=== PATIENT | female | born 1995 | race Caucasian/White ===

== ENCOUNTER 2021-07-12 19:16 | Inpatient (IN) ==
--- NOTE | 2021-07-12 19:47 | Emergency Department Note ---
Impression & Plan Depression with suicidal ideation ADMISSION ED Provider Note HPI: The patient is a 26-year-old female with history of depression, presents the emergency department after reported suicide attempt. Patient states that she was feeling very anxious and depressed earlier this evening, states that she had a "bad evening". She states that they were attempting to go to the homecoming parade but it was too crowded, she became very anxious and upset, she states that she went home and had "a panic attack". She states that during this she reached for a bottle of fluoxetine and her stopped her from taking it but she did intend to take the entire bottle to kill herself. On arrival the patient is calm and cooperative, she is otherwise in no acute distress. ROS: -Psychiatric: Suicidal thoughts/suicide attempt, depression *10 point review systems was conducted and is otherwise negative unless stated above *Outpatient medications and allergy history reviewed PE: General: Alert, NAD HEENT: Normocephalic, atraumatic, trachea midline Eyes: Extraocular eye movement is intact, no scleral erythema Pulmonary: Clear to auscultation bilaterally, no wheezing Cardio: Regular rate and rhythm GI: Abdomen is soft, nontender : No suprapubic tenderness MSK: No evidence of trauma or malformation of the extremities, no edema Skin: No evidence of rash Neuro: Alert, no focal deficits Psychiatric: Cooperative Medical Decision Making: Patient was assessed by the psychiatric case preparer and liner, determined appropriate for voluntary admission given her suicide attempt earlier today. She remained calm and cooperative otherwise while in the ED. She is medically cleared/optimized for psychiatric evaluation. Patient was accepted at [facility] [address] for further psychiatr ic care. She was admitted in stable condition. * Diagnosis: Depression, suicidal thoughts, suicide attempt * Disposition: Admission to psychiatry Roger Shen DO Emergency Medicine Past Med/Surg History Social History Smoking Status: Never smoker Hx Alcohol Use: No Hx Substance Use: No Preferred Language: Czech Feels Safe at Home: Yes Results & Data (ED) Vital Signs Vital Signs - 24 hr 07/12/21 19:20 07/12/21 19:40 Temperature 36.8 C Temperature Source Temporal Artery Scan Pulse Rate 106 H Respiratory Rate 20 Blood Pressure 142/88 H Blood Pressure Mean 106 Blood Pressure Position Sitting Pulse Oximetry 99 Oxygen Delivery Method Room Air Room Air Sepsis Recent Fever Within 48 Hours No Sepsis New/Unexplained Change in Mental Status No Sepsis Action Taken by Nursing No Action Required Laboratory Data Result diagrams: 07/12/21 20:19 07/12/21 20:19 Lab Results 07/12/21 07/12/21 07/12/21 Range/Units 19:36 19:36 20:12 WBC (4.8-10.8) K/uL RBC (4.2-5.4) M/uL Hgb (12.0-16.0) g/dL Hct (37-47) % MCV (80-100) fL MCH (25-34) pg MCHC (32-36) g/dL RDW Std Deviation (36.4-46.3) fL RDW Coeff of Bradley (11.5-14.5) % Plt Count (130-400) K/uL MPV (7.4-10.4) fL Immature Gran % (Auto) % Neut % (Auto) % Lymph % (Auto) % [place] % (Auto) % Eos % (Auto) % Baso % (Auto) % Neut # (Auto) (1.4-6.5) K/uL Lymph # (Auto) (1.2-3.4) K/uL [place] # (Auto) (0.11-0.59) K/uL Eos # (Auto) (0-0.5) K/uL Baso # (Auto) (0-0.2) K/uL Immature Gran # (Auto) (0.00-0.02) K/uL Sodium (136-145) mmol/L Potassium (3.5-5.1) mmol/L Chloride (98-107) mmol/L Carbon Dioxide (21-32) mmol/L Anion Gap (3-11) BUN (7-18) mg/dl Creatinine (0.6-1.2) mg/dl Est Cr Clr Drug Dosing ml/min Est GFR ( Amer) ml/min Est GFR (Non-Af Amer) ml/min BUN/Creatinine Ratio (10-20) Glucose (70-99) mg/dl Calcium (8.5-10.1) mg/dl Total Bilirubin (0.2-1) mg/dl AST (15-37) U/L ALT (12-78) U/L Alkaline Phosphatase (45-117) U/L Total Protein (6.4-8.2) gm/dl Albumin (3.4-5.0) gm/dl Globulin (2.5-4.0) gm/dl Albumin/Globulin Ratio (0.9-2) TSH (0.300-4.500) uIu/ml Free T4 (0.8-1.6) ng/dl Urine Color Yellow Urine Appearance Cloudy A (Clear) Urine pH 5.0 (4.5-7.5) Ur Specific [place] 1.030 (1.000-1.030) Urine Protein Negative (Negative) Urine Glucose (UA) Negative (Negative) Urine Ketones Trace H (Negative) Urine Blood Negative (Negative) Urine Nitrite Negative (Negative) Urine Bilirubin Negative (Negative) Urine Urobilinogen Negative (Negative) Ur Leukocyte Esterase Trace H (Negative) Urine WBC (Auto) 10-30 H (0-5) /hpf Urine RBC (Auto) 0-4 (0-4) /hpf U Hyaline Cast (Auto) 1-5 (0-5) /lpf U Epithel Cells (Auto) >30 H (0-5) /lpf Urine Bacteria (Auto) 2+ H (Negative) Salicylates (2.8-20) mg/dl Urine Opiates Screen Neg (Neg) Ur Methadone, Qual Neg (Neg) Acetaminophen (10-30) ug/ml Urine Barbiturates Neg (Neg) Ur Phencyclidine (PCP) Neg (Neg) U Amphetamin/Meth Scrn Neg (Neg) MDMA (Ecstasy) Screen Neg (Neg) U Benzodiazepines Scrn Neg (Neg) Ur Cocaine Metabolite Neg (Neg) U Marijuana (THC) Screen Neg (Neg) Ethyl Alcohol mg/dL (0-3) mg/dl COVID-19 Eval Order Covid19 at [facility] SARS-CoV-2 (PCR) (Negative) 07/12/21 07/12/21 07/12/21 Range/Units 20:12 20:19 20:19 WBC 9.79 (4.8-10.8) K/uL RBC 4.63 (4.2-5.4) M/uL Hgb 13.9 (12.0-16.0) g/dL Hct 40.5 (37-47) % MCV 87.5 (80-100) fL MCH 30.0 (25-34) pg MCHC 34.3 (32-36) g/dL RDW Std Deviation 38.8 (36.4-46.3) fL RDW Coeff of Bradley 12.2 (11.5-14.5) % Plt Count 302 (130-400) K/uL MPV 9.8 (7.4-10.4) fL Immature Gran % (Auto) 0.1 % Neut % (Auto) 65.6 % Lymph % (Auto) 28.4 % [place] % (Auto) 4.9 % Eos % (Auto) 0.8 % Baso % (Auto) 0.2 % Neut # (Auto) 6.42 (1.4-6.5) K/uL Lymph # (Auto) 2.78 (1.2-3.4) K/uL [place] # (Auto) 0.48 (0.11-0.59) K/uL Eos # (Auto) 0.08 (0-0.5) K/uL Baso # (Auto) 0.02 (0-0.2) K/uL Immature Gran # (Auto) 0.01 (0.00-0.02) K/uL Sodium 139 (136-145) mmol/L Potassium 3.9 (3.5-5.1) mmol/L Chloride 108 H (98-107) mmol/L Carbon Dioxide 24 (21-32) mmol/L Anion Gap 8.0 (3-11) BUN 16 (7-18) mg/dl Creatinine 0.75 (0.6-1.2) mg/dl Est Cr Clr Drug Dosing 123.2 ml/min Est GFR ( Amer) 129.3 ml/min Est GFR (Non-Af Amer) 111.6 ml/min BUN/Creatinine Ratio 20.9 H (10-20) Glucose 87 (70-99) mg/dl Calcium 9.2 (8.5-10.1) mg/dl Total Bilirubin 0.4 (0.2-1) mg/dl AST 9 L (15-37) U/L ALT 16 (12-78) U/L Alkaline Phosphatase 59 (45-117) U/L Total Protein 7.7 (6.4-8.2) gm/dl Albumin 3.7 (3.4-5.0) gm/dl Globulin 4.0 (2.5-4.0) gm/dl Albumin/Globulin Ratio 0.9 (0.9-2) TSH 5.820 H (0.300-4.500) uIu/ml Free T4 0.75 L (0.8-1.6) ng/dl Urine Color Urine Appearance (Clear) Urine pH (4.5-7.5) Ur Specific [place] (1.000-1.030) Urine Protein (Negative) Urine Glucose (UA) (Negative) Urine Ketones (Negative) Urine Blood (Negative) Urine Nitrite (Negative) Urine Bilirubin (Negative) Urine Urobilinogen (Negative) Ur Leukocyte Esterase (Negative) Urine WBC (Auto) (0-5) /hpf Urine RBC (Auto) (0-4) /hpf U Hyaline Cast (Auto) (0-5) /lpf U Epithel Cells (Auto) (0-5) /lpf Urine Bacteria (Auto) (Negative) Salicylates (2.8-20) mg/dl Urine Opiates Screen (Neg) Ur Methadone, Qual (Neg) Acetaminophen (10-30) ug/ml Urine Barbiturates (Neg) Ur Phencyclidine (PCP) (Neg) U Amphetamin/Meth Scrn (Neg) MDMA (Ecstasy) Screen (Neg) U Benzodiazepines Scrn (Neg) Ur Cocaine Metabolite (Neg) U Marijuana (THC) Screen (Neg) Ethyl Alcohol mg/dL (0-3) mg/dl COVID-19 Eval Order SARS-CoV-2 (PCR) NEGATIVE (Negative) 07/12/21 07/12/21 Range/Units 20:19 20:19 WBC (4.8-10.8) K/uL RBC (4.2-5.4) M/uL Hgb (12.0-16.0) g/dL Hct (37-47) % MCV (80-100) fL MCH (25-34) pg MCHC (32-36) g/dL RDW Std Deviation (36.4-46.3) fL RDW Coeff of Bradley (11.5-14.5) % Plt Count (130-400) K/uL MPV (7.4-10.4) fL Immature Gran % (Auto) % Neut % (Auto) % Lymph % (Auto) % [place] % (Auto) % Eos % (Auto) % Baso % (Auto) % Neut # (Auto) (1.4-6.5) K/uL Lymph # (Auto) (1.2-3.4) K/uL [place] # (Auto) (0.11-0.59) K/uL Eos # (Auto) (0-0.5) K/uL Baso # (Auto) (0-0.2) K/uL Immature Gran # (Auto) (0.00-0.02) K/uL Sodium (136-145) mmol/L Potassium (3.5-5.1) mmol/L Chloride (98-107) mmol/L Carbon Dioxide (21-32) mmol/L Anion Gap (3-11) BUN (7-18) mg/dl Creatinine (0.6-1.2) mg/dl Est Cr Clr Drug Dosing ml/min Est GFR ( Amer) ml/min Est GFR (Non-Af Amer) ml/min BUN/Creatinine Ratio (10-20) Glucose (70-99) mg/dl Calcium (8.5-10.1) mg/dl Total Bilirubin (0.2-1) mg/dl AST (15-37) U/L ALT (12-78) U/L Alkaline Phosphatase (45-117) U/L Total Protein (6.4-8.2) gm/dl Albumin (3.4-5.0) gm/dl Globulin (2.5-4.0) gm/dl Albumin/Globulin Ratio (0.9-2) TSH (0.300-4.500) uIu/ml Free T4 (0.8-1.6) ng/dl Urine Color Urine Appearance (Clear) Urine pH (4.5-7.5) Ur Specific [place] (1.000-1.030) Urine Protein (Negative) Urine Glucose (UA) (Negative) Urine Ketones (Negative) Urine Blood (Negative) Urine Nitrite (Negative) Urine Bilirubin (Negative) Urine Urobilinogen (Negative) Ur Leukocyte Esterase (Negative) Urine WBC (Auto) (0-5) /hpf Urine RBC (Auto) (0-4) /hpf U Hyaline Cast (Auto) (0-5) /lpf U Epithel Cells (Auto) (0-5) /lpf Urine Bacteria (Auto) (Negative) Salicylates < 1.7 L (2.8-20) mg/dl Urine Opiates Screen (Neg) Ur Methadone, Qual (Neg) Acetaminophen < 2 L (10-30) ug/ml Urine Barbiturates (Neg) Ur Phencyclidine (PCP) (Neg) U Amphetamin/Meth Scrn (Neg) MDMA (Ecstasy) Screen (Neg) U Benzodiazepines Scrn (Neg) Ur Cocaine Metabolite (Neg) U Marijuana (THC) Screen (Neg) Ethyl Alcohol mg/dL < 3.0 (0-3) mg/dl COVID-19 Eval Order SARS-CoV-2 (PCR) (Negative) Discharge Plan Visit Data Chief Complaint: Mental Health Evaluation Stated Complaint: ANXIETY ATTACK ED Provider: Roger Shen Discharge Problem: Depression with suicidal ideation Patient Disposition: Admitted As Inpatient Discharge Instructions Interventions: ED Discharge Assessment Last Done: 07/12/21 22:54
[2021-07-12 20:11] LABS: Appearance Urine Cloudy (Clear); Bacteria Urine Automated 2+ (Negative); Bilirubin Urine Negative (Negative); Blood Urine Negative (Negative); Color Urine Yellow; Epithelial Cell Urine Auto >30 /lpf (0-5); Glucose Urine UA Negative (Negative); Ketones Urine Trace (Negative); Leukocyte Esterase Urine Trace (Negative); Nitrite Urine Negative (Negative); Protein Urine Negative (Negative); RBC Urine Automated 0-4 /hpf (0-4); Urobilinogen Urine Negative (Negative)
[2021-07-12 20:24] LABS: Amphetamines+Metham, Urine Neg (Neg); Barbiturates, Urine Neg (Neg); Benzodiazepine, Urine Neg (Neg); Cocaine, Urine Neg (Neg); MDMA (Ecstacy), Urine Neg (Neg); Methadone, Urine Neg (Neg); Opiate, Urine Neg (Neg); Phencyclidine, Urine Neg (Neg)
[2021-07-12 20:32] LABS: Basophils # (auto) 0.02 K/uL (0-0.2); Basophils % (auto) 0.2 %; Eosinophils # (auto) 0.08 K/uL (0-0.5); Eosinophils % (auto) 0.8 %; Hematocrit (blood only) 40.5 % (37-47); Hemoglobin 13.9 g/dL (12.0-16.0); Immature Granulocytes # (auto) 0.01 K/uL (0.00-0.02); Immature Granulocytes % (auto) 0.1 %; Lymphocytes # (auto) 2.78 K/uL (1.2-3.4); Lymphocytes % (auto) 28.4 %; Mean Corpuscular Hgb Conc 34.3 g/dL (32-36); Mean Corpuscular Volume 87.5 fL (80-100); Mean Platelet Volume 9.8 fL (7.4-10.4); Monocytes # (auto) 0.48 K/uL (0.11-0.59); Monocytes % (auto) 4.9 %; Neutrophils # (auto) 6.42 K/uL (1.4-6.5); Neutrophils % (auto) 65.6 %; Platelet Count 302 K/uL (130-400); RDW Coefficient of Variation 12.2 % (11.5-14.5); RDW Standard Deviation 38.8 fL (36.4-46.3); Red Blood Count 4.63 M/uL (4.2-5.4); White Blood Count 9.79 K/uL (4.8-10.8)
[2021-07-12 20:49] LABS: Albumin Level 3.7 gm/dl (3.4-5.0); BUN Creatinine Ratio 20.9 (10-20); Calcium 9.2 mg/dl (8.5-10.1); Creatinine Clr Calc Pharmacy 123.2 ml/min; Est GFR (African American) 129.3 ml/min; Est GFR (Non-African American) 111.6 ml/min; Potassium 3.9 mmol/L (3.5-5.1)
[2021-07-12 20:58] LABS: Acetaminophen < 2 ug/ml (10-30); Salicylate < 1.7 mg/dl (2.8-20)
[2021-07-12 20:59] LABS: Albumin Globulin Ratio 0.9 (0.9-2); Bilirubin,Total 0.4 mg/dl (0.2-1); Thyroid Stimulating Hormone 5.82 uIu/ml (0.300-4.500); Total Protein 7.7 gm/dl (6.4-8.2)
[2021-07-12 21:12] LABS: T4 Free Thyroxine 0.75 ng/dl (0.8-1.6)
[2021-07-12] MEDS ORDERED: hydrOXYzine HCl 25 MG TAB PO PRN ×2 (22:46)
[2021-07-12] MEDS ORDERED: MAGNESIUM HYDROXIDE SUSP 30 ML UDC PO PRN (22:46)
[2021-07-12] MEDS ORDERED: ACETAMINOPHEN 325 MG TAB PO PRN (22:46)
[2021-07-12] MEDS ORDERED: ALUMINUM/MAGNESIUM SUSP 30 ML UDC PO PRN (22:46)
[2021-07-12] MEDS ORDERED: SODIUM CHLORIDE 0.65% NA SOLN 45 ML (OCEAN) PRN (22:46)
[2021-07-12] MEDS ORDERED: BISMUTH SUBSALICYLATE LIQD 236 ML PO PRN (22:46)
[2021-07-13] MEDS ORDERED: FLUARIX QUADRIVALENT 0.5 ML SYR IM ONE (08:00)
[2021-07-13] MEDS ORDERED: DESVENLAFAXINE 100 MG PO SCH (10:00)
[2021-07-13 11:08] LABS: Pregnancy Test, Urine Negative (Negative)
[2021-07-13] MEDS: LEVOTHYROXINE SODIUM 25 MCG TABLET PO SCH (12:37)
--- NOTE | 2021-07-13 16:59 | History & Physical ---
Date of Service July 13, 2021 Impression / Recommendations Impression 26 yo female with a history of worsening mood and anxiety, denies a history of krystal or hypomania, admit following SI during a panic attack during an episode of MDD. (1) Depression with suicidal ideation: (2) Generalized anxiety disorder with panic attacks: (3) Hypothyroid: The patient was admitted to the [facility] ([facility]) on q15 min checks (behavioral with suicide precautions) for safety. The patient will participate in group, recreational, and milieu therapies and will be offered additional individual and family sessions as clinically appropriate. The patient states her mother has thyroid issues and endorses skin and hair changes as well as fatigue. TSH elevation is not dramatic but free T4 is low and supplementation may also help depression. She agreed to start low dose Synthroid with follow up with PCP. Risks/benefits/alternatives reviewed re: Evitastiq and will bring as non-formulary so can start medication while being monitored. Inventory Assets Strengths: working, committed relationship Needs: therapist, monitoring thyroid Risk Factors Assessment : Yes Do You Have Access To A Gun?: No Mental Health Diagnoses: Yes Substance Use Disorders: No Previous Attempt: No Previous Psychiatric Hospitalization: No Protective Factors Assessment : Yes Responsible for Young Children: No Employed: Yes Stable Relationships: Yes Psychiatric History Identifying Data ARI IRAHETA is a 26-year-old F, has a history of anxiety, and was admitted on 07/12/21 22:39 on a 201 voluntary commitment for SI with near attempt. Chief Complaint "I just freaked out and grabbed the Prozac". 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 The students, faculty, and staff are quite rude as displacing their anger about forced testing and apparently some have been so disruptive that security is now on site. This fall she has noticed worsening mood, poor motivation, and hypersomnia (>12 hours). She is not eating as well as she will literally sleep through meals. She is losing hair and having more skin issues which she refers to as psoriasis but sounds like irritation and seborrhea. She also notes arthritis type pain in her hands and feet that she notices most at night. She was [place] [employer] [place] with and a man yelled and this triggered a panic attack. She hasn't had an attack "for years" but she would sweat, be tremulous, and SOB. She left abruptly and when got back home she reached for an old prescription bottle. Her stopped her and in that context she felt like being aggressive. She denies any intent to harm but "I felt like I could take a bat and hit somebody". Of note she stopped Lexapro abruptly about 2 weeks ago. She was to start Pristiq and picked it up at the pharmacy but hadn't started it yet. Past Psychiatric History Current Psychiatric Diagnosis: MDD Outpatient Services: Shelby Newell PA-C at [facility] No therapist Previous Psych Admissions: none Do You Have Access To A Gun?: No History of Previous Suicide Attempt: No Past Medication Trials: [facility] Allergies Allergy/AdvReac Type Severity Reaction Status Date / Time No Known Allergies Allergy Unverified 07/13/21 01:09 Home Medications Medication Instructions Recorded Confirmed Type desvenlafaxine 100 mg 100 mg PO DAILY 07/13/21 07/13/21 History tablet,extended release 24 hr norethindrone 1 mg-ethinyl 1 tab PO DAILY 07/13/21 07/13/21 History estradiol 35 mcg tablet (Alyacen) Family History Family History of: Doesn't Know Family Mental Health History Comment: sister with OCD (treated) Alcohol History Hx of Alcohol Use Over the Past 12 Months: Yes (occasional, social) AUDIT Total Score: 1 Smoking Use Have You Smoked or Used Tobacco Products in the Last 30 Days: No Smoking Status: Never smoker Substance History Hx of Prescription Med Misuse Over the Past 12 Months: No Hx of Over the Counter Med Misuse Over the Past 12 Months: No Hx of Inhalent Misuse Over the Past 12 Months: No Hx of Organic Substance Use Over the Past 12 Months: No Hx of Illegal Substances/Street Drug Use Over Past 12 Months: No Problems as a Result of Past Substance Use: None Identified Personal History Living Arrangements: Home Highest Grade Completed: College Employment Status: Be[employer] Hel[employer] Employed Marital Status: Number Of Children: 0 Beliefs That Will Affect Care: None Current Legal Problems: No Hx Legal Problems: No Hx Traumatic Life Events: No Patient History Social History Smoking Status: Never smoker Hx Alcohol Use: No Hx Substance Use: No Preferred Language: Malawian Communication Ability: Effective Kettle Worker Required: No Beliefs That Will Affect Care: None Feels Safe at Home: Yes Assistive Devices: None Review of Systems Review of Systems: All systems reviewed & are unremarkable except as noted in HPI & below Physical Exam Psychiatric: Orientation: alert and oriented x 3 Apperance: appropriately dressed and appropriately groomed Eye Contact: good eye contact Motor Behavior: no abnormal motor movements Speech: normal rate/rhythm/volume of speech Affect: + depressed affect Mood: + depressed mood Thought Process: goal directed thought process Thought Content: reality based without delusions Suicidal Thoughts: denies suicidal thoughts Homicidal Thoughts: denies homicidal thoughts Hallucinations: no auditory hallucinations and no visual hallucinations Cognition: attention grossly intact and language grossly intact Estimated Intelligence: consistent with education level Insight: + limited insight Judgement: + limited judgement Vital Signs (Past 24 Hours): Last Vital Signs Temp 37.3 C 07/13/21 07:07 Pulse 80 07/13/21 07:07 Resp 16 07/13/21 07:07 BP 110/79 07/13/21 07:08 Pulse Ox 98 07/13/21 00:19 Exam Statement: A physical exam was performed in the ED by Dr. Shen for the purposes of medical clearance. I accept that physical as correct and adequate for the purposes of the inpatient physical exam. Results & Data ([facility]) Laboratory Results Laboratory Results - last 24 hr 07/12/21 07/12/21 07/12/21 19:36 19:36 20:12 WBC RBC Hgb Hct MCV MCH MCHC RDW Std Deviation RDW Coeff of Bradley Plt Count MPV Immature Gran % (Auto) Neut % (Auto) Lymph % (Auto) [place] % (Auto) Eos % (Auto) Baso % (Auto) Neut # (Auto) Lymph # (Auto) [place] # (Auto) Eos # (Auto) Baso # (Auto) Immature Gran # (Auto) Sodium Potassium Chloride Carbon Dioxide Anion Gap BUN Creatinine Est Cr Clr Drug Dosing Est GFR ( Amer) Est GFR (Non-Af Amer) BUN/Creatinine Ratio Glucose Calcium Total Bilirubin AST ALT Alkaline Phosphatase Total Protein Albumin Globulin Albumin/Globulin Ratio TSH Free T4 Urine Color Yellow Urine Appearance Cloudy A Urine pH 5.0 Ur Specific [place] 1.030 Urine Protein Negative Urine Glucose (UA) Negative Urine Ketones Trace H Urine Blood Negative Urine Nitrite Negative Urine Bilirubin Negative Urine Urobilinogen Negative Ur Leukocyte Esterase Trace H Urine WBC (Auto) 10-30 H Urine RBC (Auto) 0-4 U Hyaline Cast (Auto) 1-5 U Epithel Cells (Auto) >30 H Urine Bacteria (Auto) 2+ H Urine Test Salicylates Urine Opiates Screen Neg Ur Methadone, Qual Neg Acetaminophen Urine Barbiturates Neg Ur Phencyclidine (PCP) Neg U Amphetamin/Meth Scrn Neg MDMA (Ecstasy) Screen Neg U Benzodiazepines Scrn Neg Ur Cocaine Metabolite Neg U Marijuana (THC) Screen Neg Ethyl Alcohol mg/dL COVID-19 Eval Order Covid19 at [facility] SARS-CoV-2 (PCR) 07/12/21 07/12/21 07/12/21 20:12 20:19 20:19 WBC 9.79 RBC 4.63 Hgb 13.9 Hct 40.5 MCV 87.5 MCH 30.0 MCHC 34.3 RDW Std Deviation 38.8 RDW Coeff of Bradley 12.2 Plt Count 302 MPV 9.8 Immature Gran % (Auto) 0.1 Neut % (Auto) 65.6 Lymph % (Auto) 28.4 [place] % (Auto) 4.9 Eos % (Auto) 0.8 Baso % (Auto) 0.2 Neut # (Auto) 6.42 Lymph # (Auto) 2.78 [place] # (Auto) 0.48 Eos # (Auto) 0.08 Baso # (Auto) 0.02 Immature Gran # (Auto) 0.01 Sodium 139 Potassium 3.9 Chloride 108 H Carbon Dioxide 24 Anion Gap 8.0 BUN 16 Creatinine 0.75 Est Cr Clr Drug Dosing 123.2 Est GFR ( Amer) 129.3 Est GFR (Non-Af Amer) 111.6 BUN/Creatinine Ratio 20.9 H Glucose 87 Calcium 9.2 Total Bilirubin 0.4 AST 9 L ALT 16 Alkaline Phosphatase 59 Total Protein 7.7 Albumin 3.7 Globulin 4.0 Albumin/Globulin Ratio 0.9 TSH 5.820 H Free T4 0.75 L Urine Color Urine Appearance Urine pH Ur Specific [place] Urine Protein Urine Glucose (UA) Urine Ketones Urine Blood Urine Nitrite Urine Bilirubin Urine Urobilinogen Ur Leukocyte Esterase Urine WBC (Auto) Urine RBC (Auto) U Hyaline Cast (Auto) U Epithel Cells (Auto) Urine Bacteria (Auto) Urine Test Salicylates Urine Opiates Screen Ur Methadone, Qual Acetaminophen Urine Barbiturates Ur Phencyclidine (PCP) U Amphetamin/Meth Scrn MDMA (Ecstasy) Screen U Benzodiazepines Scrn Ur Cocaine Metabolite U Marijuana (THC) Screen Ethyl Alcohol mg/dL COVID-19 Eval Order SARS-CoV-2 (PCR) NEGATIVE 07/12/21 07/12/21 07/13/21 20:19 20:19 10:55 WBC RBC Hgb Hct MCV MCH MCHC RDW Std Deviation RDW Coeff of Bradley Plt Count MPV Immature Gran % (Auto) Neut % (Auto) Lymph % (Auto) [place] % (Auto) Eos % (Auto) Baso % (Auto) Neut # (Auto) Lymph # (Auto) [place] # (Auto) Eos # (Auto) Baso # (Auto) Immature Gran # (Auto) Sodium Potassium Chloride Carbon Dioxide Anion Gap BUN Creatinine Est Cr Clr Drug Dosing Est GFR ( Amer) Est GFR (Non-Af Amer) BUN/Creatinine Ratio Glucose Calcium Total Bilirubin AST ALT Alkaline Phosphatase Total Protein Albumin Globulin Albumin/Globulin Ratio TSH Free T4 Urine Color Urine Appearance Urine pH Ur Specific [place] Urine Protein Urine Glucose (UA) Urine Ketones Urine Blood Urine Nitrite Urine Bilirubin Urine Urobilinogen Ur Leukocyte Esterase Urine WBC (Auto) Urine RBC (Auto) U Hyaline Cast (Auto) U Epithel Cells (Auto) Urine Bacteria (Auto) Urine Test Negative Salicylates < 1.7 L Urine Opiates Screen Ur Methadone, Qual Acetaminophen < 2 L Urine Barbiturates Ur Phencyclidine (PCP) U Amphetamin/Meth Scrn MDMA (Ecstasy) Screen U Benzodiazepines Scrn Ur Cocaine Metabolite U Marijuana (THC) Screen Ethyl Alcohol mg/dL < 3.0 COVID-19 Eval Order SARS-CoV-2 (PCR) Current Inpatient Medications Current Inpatient Medications: Current Inpatient Medications Acetaminophen (Acetaminophen 325 Mg Tab) 650 mg PO Q4H PRN PRN Reason: Headache or Minor Fever Stop: 08/11/21 22:45 Al Hydrox/Mg Hydrox/Simethicone (Aluminum/Magnesium Susp 30 Ml Udc) 30 ml PO Q4H PRN PRN Reason: GI Upset Stop: 08/11/21 22:45 Bismuth Subsalicylate (Bismuth Subsalicylate Liqd 236 Ml) 15 ml PO PRN PRN PRN Reason: Loose Stool Stop: 08/11/21 22:45 Hydroxyzine HCl (Hydroxyzine Hcl 25 Mg Tab) 50 mg PO HSZ PRN PRN Reason: Insomnia Stop: 08/11/21 22:45 Hydroxyzine HCl (Hydroxyzine Hcl 25 Mg Tab) 25 mg PO Q4H PRN PRN Reason: Anxiety Stop: 08/11/21 22:45 Levothyroxine Sodium (Levothyroxine Sodium 25 Mcg Tablet) 25 mcg PO DAILYBB RON Stop: 08/12/21 09:59 Last Admin: 07/13/21 12:37 Dose: 25 mcg Documented by: Magnesium Hydroxide (Magnesium Hydroxide Susp 30 Ml Udc) 30 ml PO DAILY PRN PRN Reason: Constipation Stop: 08/11/21 22:45 Miscellaneous (Desvenlafaxine 100 Mg Er Tab: Order Awaiting Action) 1 ea N/A QS RON Stop: 08/12/21 15:59 Miscellaneous (Oral Contraceptive: Order Awaiting Action) 1 ea N/A QS RON Stop: 08/12/21 15:59 Sodium Chloride (Sodium Chloride 0.65% Na Soln 45 Ml (Pine)) 1 - 2 sprays NA PRN PRN PRN Reason: Nasal Dryness/Congestion Stop: 08/11/21 22:45
[2021-07-13] MEDS: BIRTH CONTROL PO SCH (18:16)
[2021-07-13] MEDS: DESVENLAFAXINE SUCCINATE ER 100 MG TABLET PO SCH (18:17)
[2021-07-14] MEDS: LEVOTHYROXINE SODIUM 25 MCG TABLET PO SCH (08:37)
[2021-07-14] MEDS: BIRTH CONTROL PO SCH (08:37)
[2021-07-14] MEDS ORDERED: NORETHINDRONE PO SCH (09:00)
[2021-07-14] MEDS ORDERED: ETHINYL ESTRADIOL PO SCH (09:00)
[2021-07-14] MEDS ORDERED: [UNRECOGNIZED DRUG - OTHER] PO SCH (09:00)
[2021-07-14] MEDS: DESVENLAFAXINE SUCCINATE ER 100 MG TABLET PO SCH (13:13)
--- NOTE | 2021-07-14 17:26 | Psychiatric Progress Note ---
Date of Service July 14, 2021 Impression / Recommendations Impression 26 yo female with a history of worsening mood and anxiety, denies a history of krystal or hypomania, admit following SI during a panic attack during an episode of MDD. (1) Depression with suicidal ideation: (2) Generalized anxiety disorder with panic attacks: (3) Hypothyroid: 07/14/21: Continue current meds and treatment plan, Pristiq with food. Needs meeting with . 07/13/21: The patient was admitted to the [facility] on q15 min checks (behavioral with suicide precautions) for safety. The patient will participate in group, recreational, and milieu therapies and will be offered additional individual and family sessions as clinically appropriate. The patient states her mother has thyroid issues and endorses skin and hair changes as well as fatigue. TSH elevation is not dramatic but free T4 is low and supplementation may also help depression. She agreed to start low dose Synthroid with follow up with PCP. Risks/benefits/alternatives reviewed re: Pristiq and will bring as non-formulary so can start medication while being monitored. Inventory Assets Strengths: working, committed relationship Needs: therapist, monitoring thyroid Risk Factors Assessment : Yes Do You Have Access To A Gun?: No Mental Health Diagnoses: Yes Substance Use Disorders: No Previous Attempt: No Previous Psychiatric Hospitalization: No Protective Factors Assessment : Yes Responsible for Young Children: No Employed: Yes Stable Relationships: Yes Interval History Identifying Information Shauna is a 26 yo female admit on 07/12/21 on a 201 commitment for impulsive near suicidal gesture. Chief Complaint "my went to the game and I'm totally OK with that". Review of Systems Sleep Information Total Hours of Sleep: 6 Meal Information Percent Meal Consumed - Breakfast: 75 Percent Meal Consumed - Lunch: 100 Percent Meal Consumed - Dinner: 100 Subjective Subjective Patient was seen & assessed and interval progress reviewed with nursing and social work. No recurrence of SI. Reports that her mother was diagnosed with hypothyroidism at her age. Now relates some discontinuation syndrome associated with d/c Lexapro. At work she felt jittery/brain zaps and just attributed it to stress. Had some N after the first dose of Pristiq which resolved quickly with Maalox. Physical Exam Psychiatric Orientation: alert and oriented x 3 Apperance: appropriately dressed and appropriately groomed Eye Contact: good eye contact Motor Behavior: no abnormal motor movements Speech: normal rate/rhythm/volume of speech Affect: + depressed affect Mood: + depressed mood Thought Process: goal directed thought process Thought Content: reality based without delusions Suicidal Thoughts: denies suicidal thoughts Homicidal Thoughts: denies homicidal thoughts Hallucinations: no auditory hallucinations and no visual hallucinations Cognition: attention grossly intact and language grossly intact Estimated Intelligence: consistent with education level Insight: + fair insight Judgement: + fair judgement Vital Signs (Past 24 Hours) Last Vital Signs Temp 37.1 C 07/14/21 06:47 Pulse 108 H 07/14/21 06:48 Resp 16 07/14/21 06:47 BP 105/71 07/14/21 06:48 Pulse Ox 98 07/13/21 00:19 Results & Data ([facility] [place]) Current Inpatient Medications Current Inpatient Medications: Current Inpatient Medications Acetaminophen (Acetaminophen 325 Mg Tab) 650 mg PO Q4H PRN PRN Reason: Headache or Minor Fever Stop: 08/11/21 22:45 Al Hydrox/Mg Hydrox/Simethicone (Aluminum/Magnesium Susp 30 Ml Udc) 30 ml PO Q4H PRN PRN Reason: GI Upset Stop: 08/11/21 22:45 Bismuth Subsalicylate (Bismuth Subsalicylate Liqd 236 Ml) 15 ml PO PRN PRN PRN Reason: Loose Stool Stop: 08/11/21 22:45 Desvenlafaxine Succinate (Desvenlafaxine Succinate Er 100 Mg Tablet) 1 ea PO QAM RON Stop: 08/12/21 17:29 Last Admin: 07/14/21 13:13 Dose: 1 ea Documented by: Hydroxyzine HCl (Hydroxyzine Hcl 25 Mg Tab) 50 mg PO HSZ PRN PRN Reason: Insomnia Stop: 08/11/21 22:45 Hydroxyzine HCl (Hydroxyzine Hcl 25 Mg Tab) 25 mg PO Q4H PRN PRN Reason: Anxiety Stop: 08/11/21 22:45 Last Admin: 07/13/21 19:47 Dose: 25 mg Documented by: Levothyroxine Sodium (Levothyroxine Sodium 25 Mcg Tablet) 25 mcg PO DAILYBB RON Stop: 08/12/21 09:59 Last Admin: 07/14/21 08:37 Dose: 25 mcg Documented by: Magnesium Hydroxide (Magnesium Hydroxide Susp 30 Ml Udc) 30 ml PO DAILY PRN PRN Reason: Constipation Stop: 08/11/21 22:45 Control - Non- Formulary Patient's Own Med 1 ea PO QAM RON Stop: 08/13/21 08:59 Last Admin: 07/14/21 08:37 Dose: 1 ea Documented by: Sodium Chloride (Sodium Chloride 0.65% Na Soln 45 Ml (Mcmullen)) 1 - 2 sprays NA PRN PRN PRN Reason: Nasal Dryness/Congestion Stop: 08/11/21 22:45 Post Discharge Appointments Primary Care Physician Name Of Family Doctor: Jose Alberto Kate
--- NOTE | 2021-07-15 06:30 | Psychiatric Progress Note ---
Date of Service July 15, 2021 Impression / Recommendations Impression 26 yo female with a history of worsening mood and anxiety, denies a history of krystal or hypomania, admit following SI during a panic attack during an episode of MDD which seems to be related to a prolonged Lexapro discontinuation syndrome. 07/15/21: (1) Depression with suicidal ideation: (2) Generalized anxiety disorder with panic attacks: (3) Hypothyroid: 07/14/21: Continue current meds and treatment plan, Pristiq with food. Needs meeting with . 07/13/21: The patient was admitted to the [facility] ([facility]) on q15 min checks (behavioral with suicide precautions) for safety. The patient will participate in group, recreational, and milieu therapies and will be offered additional individual and family sessions as clinically appropriate. The patient states her mother has thyroid issues and endorses skin and hair changes as well as fatigue. TSH elevation is not dramatic but free T4 is low and supplementation may also help depression. She agreed to start low dose Synthroid with follow up with PCP. Risks/benefits/alternatives reviewed re: Eduar and will bring as non-formulary so can start medication while being monitored. Inventory Assets Strengths: working, committed relationship Needs: therapist, monitoring thyroid Risk Factors Assessment : Yes Do You Have Access To A Gun?: No Mental Health Diagnoses: Yes Substance Use Disorders: No Previous Attempt: No Previous Psychiatric Hospitalization: No Protective Factors Assessment : Yes Responsible for Young Children: No Employed: Yes Stable Relationships: Yes Interval History Identifying Information Shauna is a 26 yo female admit on 07/12/21 on a 201 commitment for impulsive near suicidal gesture. Chief Complaint "[]". Review of Systems Sleep Information Total Hours of Sleep: 6 Meal Information Percent Meal Consumed - Breakfast: 75 Percent Meal Consumed - Lunch: 100 Percent Meal Consumed - Dinner: 50 Subjective Subjective Patient was seen & assessed and interval progress reviewed with treatment team. Physical Exam Psychiatric Orientation: alert and oriented x 3 Apperance: appropriately dressed and appropriately groomed Eye Contact: good eye contact Motor Behavior: no abnormal motor movements Speech: normal rate/rhythm/volume of speech Affect: euthymic affect Mood: + anxious mood Thought Process: goal directed thought process Thought Content: reality based without delusions Suicidal Thoughts: denies suicidal thoughts Homicidal Thoughts: denies homicidal thoughts Hallucinations: no auditory hallucinations and no visual hallucinations Cognition: attention grossly intact and language grossly intact Estimated Intelligence: consistent with education level Insight: + fair insight Judgement: + fair judgement Vital Signs (Past 24 Hours) Last Vital Signs Temp 37.2 C 07/14/21 21:50 Pulse 108 H 07/14/21 06:48 Resp 16 07/14/21 06:47 BP 105/71 07/14/21 06:48 Pulse Ox 98 07/13/21 00:19 Results & Data ([facility]) Current Inpatient Medications Current Inpatient Medications: Current Inpatient Medications Acetaminophen (Acetaminophen 325 Mg Tab) 650 mg PO Q4H PRN PRN Reason: Headache or Minor Fever Stop: 08/11/21 22:45 Last Admin: 07/14/21 22:00 Dose: 650 mg Documented by: Al Hydrox/Mg Hydrox/Simethicone (Aluminum/Magnesium Susp 30 Ml Udc) 30 ml PO Q4H PRN PRN Reason: GI Upset Stop: 08/11/21 22:45 Bismuth Subsalicylate (Bismuth Subsalicylate Liqd 236 Ml) 15 ml PO PRN PRN PRN Reason: Loose Stool Stop: 08/11/21 22:45 Desvenlafaxine Succinate (Desvenlafaxine Succinate Er 100 Mg Tablet) 1 ea PO QAM RON Stop: 08/12/21 17:29 Last Admin: 07/14/21 13:13 Dose: 1 ea Documented by: Hydroxyzine HCl (Hydroxyzine Hcl 25 Mg Tab) 50 mg PO HSZ PRN PRN Reason: Insomnia Stop: 08/11/21 22:45 Hydroxyzine HCl (Hydroxyzine Hcl 25 Mg Tab) 25 mg PO Q4H PRN PRN Reason: Anxiety Stop: 08/11/21 22:45 Last Admin: 07/13/21 19:47 Dose: 25 mg Documented by: Levothyroxine Sodium (Levothyroxine Sodium 25 Mcg Tablet) 25 mcg PO DAILYBB RON Stop: 08/12/21 09:59 Last Admin: 07/14/21 08:37 Dose: 25 mcg Documented by: Magnesium Hydroxide (Magnesium Hydroxide Susp 30 Ml Udc) 30 ml PO DAILY PRN PRN Reason: Constipation Stop: 08/11/21 22:45 Control - Non- Formulary Patient's Own Med 1 ea PO QAM RON Stop: 08/13/21 08:59 Last Admin: 07/14/21 08:37 Dose: 1 ea Documented by: Sodium Chloride (Sodium Chloride 0.65% Na Soln 45 Ml (Navarro)) 1 - 2 sprays NA PRN PRN PRN Reason: Nasal Dryness/Congestion Stop: 08/11/21 22:45 Post Discharge Appointments Primary Care Physician Name Of Family Doctor: Jose Alberto Kate
[2021-07-15] MEDS: LEVOTHYROXINE SODIUM 25 MCG TABLET PO SCH (08:34)
[2021-07-15] MEDS: BIRTH CONTROL PO SCH (08:35)
[2021-07-15] MEDS: DESVENLAFAXINE SUCCINATE ER 100 MG TABLET PO SCH (08:35)
--- NOTE | 2021-07-15 11:50 | Discharge Summary ---
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 This fall she has noticed worsening mood, poor motivation, and hypersomnia (>12 hours). She is not eating as well as she will literally sleep through meals. She is losing hair and having more skin issues which she refers to as psoriasis but sounds like irritation and seborrhea. She also notes arthritis type pain in her hands and feet that she notices most at night. She was attending [employer] homecoming parade with and a man yelled and this triggered a panic attack. She hasn't had an attack "for years" but she would sweat, be tremulous, and SOB. She left abruptly and when got back home she reached for an old prescription bottle. Her stopped her and in that context she felt like being aggressive. She denies any intent to harm but "I felt like I could take a bat and hit somebody". Of note she stopped Lexapro abruptly about 2 weeks ago. She was to start Pristiq and picked it up at the pharmacy but hadn't started it yet. Physical Exam Mental Examination See admission H&P and DOD summary. Vital Signs (Past 24 Hours) Last Vital Signs Temp 36.9 C 07/15/21 06:51 Pulse 94 H 07/15/21 06:52 Resp 16 07/15/21 06:51 BP 111/78 07/15/21 06:52 Pulse Ox 98 07/13/21 00:19 Principal Diagnosis Generalized anxiety disorder with panic attacks Psychiatric Data See daily stay summary. In short, safety was maintained and the patient was cooperative with care. Medication changes included starting Pristiq trial as prescribed by her outpatient provider and they tolerated this well. Hypothyroidism is likely contributing to vegetative symptoms and she was started on Synthoid. A family session was held and safety plan was completed prior to discharge. Her is supportive and will continue to help with securing meds as needed. Shauna received 3 doses of Pristiq 100 mg here (own supply as non formulary) as was most recent rx. Meds in safe at discharge included 50 mg which was recommended dose for first week on an outpatient basis. She is tolerating the higher dose without issue, will hold on to the 50 mg in case needs to adjust titration schedule and/or can use 2 of the 50 mg xrpq=365 mg dose. She is advised not to stop medications abruptly in the future. She was offered an rx of prn Vistaril for panic but declined as has own supply. Day of Discharge Assessment Today the patient voices readiness for discharge. They note improvement in mood and deny thoughts to harm self or others. Thoughts remain organized and they are improved from admission. There is no evidence of psychosis. They agree to take mediations as prescribed and keep follow-up appointments. They are stable for discharge to outpatient level of care. Transition of Care Transition Of Care Record: was reviewed with the patient Advance Directives Advance Directives Information Provided: Yes Advance Directives: No Mental Health Advance Directive: No Advance Directives on File: No Living Will: No Power of Fire Battalion Chief: No Advance Directives Reason:: Declines as Mental Health Visit. Risk Factors Assessment : Yes Do You Have Access To A Gun?: No Mental Health Diagnoses: Yes Substance Use Disorders: No Previous Attempt: No Previous Psychiatric Hospitalization: No Protective Factors Assessment : Yes Responsible for Young Children: No Employed: Yes Stable Relationships: Yes Tobacco Cessation at Discharge Tobacco Cessation Medication Prescribed at Discharge: Not Applicable/Non-Smoker Total Time Total Time Spent: Greater Than 30 Minutes Total Time Includes: Examination of the patient, Discharge Planning and Medication Reconciliation Discharge Data Lab Results 07/12/21 07/12/21 07/12/21 19:36 19:36 20:12 WBC RBC Hgb Hct MCV MCH MCHC RDW Std Deviation RDW Coeff of Bradley Plt Count MPV Immature Gran % (Auto) Neut % (Auto) Lymph % (Auto) Hand % (Auto) Eos % (Auto) Baso % (Auto) Neut # (Auto) Lymph # (Auto) Hand # (Auto) Eos # (Auto) Baso # (Auto) Immature Gran # (Auto) Sodium Potassium Chloride Carbon Dioxide Anion Gap BUN Creatinine Est Cr Clr Drug Dosing Est GFR ( Amer) Est GFR (Non-Af Amer) BUN/Creatinine Ratio Glucose Calcium Total Bilirubin AST ALT Alkaline Phosphatase Total Protein Albumin Globulin Albumin/Globulin Ratio TSH Free T4 Urine Color Yellow Urine Appearance Cloudy A Urine pH 5.0 Ur Specific Finley 1.030 Urine Protein Negative Urine Glucose (UA) Negative Urine Ketones Trace H Urine Blood Negative Urine Nitrite Negative Urine Bilirubin Negative Urine Urobilinogen Negative Ur Leukocyte Esterase Trace H Urine WBC (Auto) 10-30 H Urine RBC (Auto) 0-4 U Hyaline Cast (Auto) 1-5 U Epithel Cells (Auto) >30 H Urine Bacteria (Auto) 2+ H Urine Test Salicylates Urine Opiates Screen Neg Ur Methadone, Qual Neg Acetaminophen Urine Barbiturates Neg Ur Phencyclidine (PCP) Neg U Amphetamin/Meth Scrn Neg MDMA (Ecstasy) Screen Neg U Benzodiazepines Scrn Neg Ur Cocaine Metabolite Neg U Marijuana (THC) Screen Neg Ethyl Alcohol mg/dL COVID-19 Eval Order Covid19 at [facility] SARS-CoV-2 (PCR) 07/12/21 07/12/21 07/12/21 20:12 20:19 20:19 WBC 9.79 RBC 4.63 Hgb 13.9 Hct 40.5 MCV 87.5 MCH 30.0 MCHC 34.3 RDW Std Deviation 38.8 RDW Coeff of Bradley 12.2 Plt Count 302 MPV 9.8 Immature Gran % (Auto) 0.1 Neut % (Auto) 65.6 Lymph % (Auto) 28.4 Hand % (Auto) 4.9 Eos % (Auto) 0.8 Baso % (Auto) 0.2 Neut # (Auto) 6.42 Lymph # (Auto) 2.78 Hand # (Auto) 0.48 Eos # (Auto) 0.08 Baso # (Auto) 0.02 Immature Gran # (Auto) 0.01 Sodium 139 Potassium 3.9 Chloride 108 H Carbon Dioxide 24 Anion Gap 8.0 BUN 16 Creatinine 0.75 Est Cr Clr Drug Dosing 123.2 Est GFR ( Amer) 129.3 Est GFR (Non-Af Amer) 111.6 BUN/Creatinine Ratio 20.9 H Glucose 87 Calcium 9.2 Total Bilirubin 0.4 AST 9 L ALT 16 Alkaline Phosphatase 59 Total Protein 7.7 Albumin 3.7 Globulin 4.0 Albumin/Globulin Ratio 0.9 TSH 5.820 H Free T4 0.75 L Urine Color Urine Appearance Urine pH Ur Specific Finley Urine Protein Urine Glucose (UA) Urine Ketones Urine Blood Urine Nitrite Urine Bilirubin Urine Urobilinogen Ur Leukocyte Esterase Urine WBC (Auto) Urine RBC (Auto) U Hyaline Cast (Auto) U Epithel Cells (Auto) Urine Bacteria (Auto) Urine Test Salicylates Urine Opiates Screen Ur Methadone, Qual Acetaminophen Urine Barbiturates Ur Phencyclidine (PCP) U Amphetamin/Meth Scrn MDMA (Ecstasy) Screen U Benzodiazepines Scrn Ur Cocaine Metabolite U Marijuana (THC) Screen Ethyl Alcohol mg/dL COVID-19 Eval Order SARS-CoV-2 (PCR) NEGATIVE 07/12/21 07/12/21 07/13/21 20:19 20:19 10:55 WBC RBC Hgb Hct MCV MCH MCHC RDW Std Deviation RDW Coeff of Bradley Plt Count MPV Immature Gran % (Auto) Neut % (Auto) Lymph % (Auto) Hand % (Auto) Eos % (Auto) Baso % (Auto) Neut # (Auto) Lymph # (Auto) Hand # (Auto) Eos # (Auto) Baso # (Auto) Immature Gran # (Auto) Sodium Potassium Chloride Carbon Dioxide Anion Gap BUN Creatinine Est Cr Clr Drug Dosing Est GFR ( Amer) Est GFR (Non-Af Amer) BUN/Creatinine Ratio Glucose Calcium Total Bilirubin AST ALT Alkaline Phosphatase Total Protein Albumin Globulin Albumin/Globulin Ratio TSH Free T4 Urine Color Urine Appearance Urine pH Ur Specific Finley Urine Protein Urine Glucose (UA) Urine Ketones Urine Blood Urine Nitrite Urine Bilirubin Urine Urobilinogen Ur Leukocyte Esterase Urine WBC (Auto) Urine RBC (Auto) U Hyaline Cast (Auto) U Epithel Cells (Auto) Urine Bacteria (Auto) Urine Test Negative Salicylates < 1.7 L Urine Opiates Screen Ur Methadone, Qual Acetaminophen < 2 L Urine Barbiturates Ur Phencyclidine (PCP) U Amphetamin/Meth Scrn MDMA (Ecstasy) Screen U Benzodiazepines Scrn Ur Cocaine Metabolite U Marijuana (THC) Screen Ethyl Alcohol mg/dL < 3.0 COVID-19 Eval Order SARS-CoV-2 (PCR) Hospital Course (1) Depression with suicidal ideation: (2) Generalized anxiety disorder with panic attacks: (3) Hypothyroid: 07/14/21: Continue current meds and treatment plan, Pristiq with food. Beatriz chase meeting with . 07/13/21: The patient was [facility] mental [facility]) on q15 min checks (behavioral with suicide precautions) for safety. The patient will participate in group, recreational, and milieu therapies and will be offered additional individual and family sessions as clinically appropriate. The patient states her mother has thyroid issues and endorses skin and hair changes as well as fatigue. TSH elevation is not dramatic but free T4 is low and supplementation may also help depression. She agreed to start low dose Synthroid with follow up with PCP. Risks/benefits/alternatives reviewed re: Pristiq and will bring as non-formulary so can start medication while being monitored. Mental Health & Subst Abuse Tx Psychiatrist Name of Psychiatrist: Ira Newell Psychiatrist's Date of Appointment with Psychiatrist: 07/23/21 Time of Appointment with Psychiatrist: 11:00 AM Psychiatric Appointment Comment: Via Zoom Therapist Name of Therapist: Ira - requested to be added to waitlist Therapist's Therapy Appointment Comment: Please follow up with Shelby / Ira regarding waitlist. Post Discharge Appointments Primary Care Physician Name Of Family Doctor: Dr. Jose Alberto Kate Primary Care Date of Appointment with PCP: 08/26/21 Time of Appointment with PCP: 12:30 PM Provider Appointment Comment: [address], [place] [address] Smoking Cessation Counseling Tobacco Cessation Medication Prescribed at Discharge: Not Applicable/Non-Smoker Contact Information Discharge Discharge Address: [address] [place] [address] Discharge Plan Discharge Items Patient Disposition: Home - Self-Care Reason For Visit: MDD Discharge Diagnosis: Generalized anxiety disorder with panic attacks Health Concerns: You were diagnosed with hypothyroidism. Please follow up with Dr. Kate in 6 weeks for repeat thyroid panel. Activity: Resume your previous activity Non-emergency contact: Primary Care Provider, Psychiatrist and Therapist Call non-emergency contact if: you have any medication questions and your symptoms worsen Follow-up/Referrals: Jose Alberto Kate [Primary Care Provider] - Diet: Regular Addtl Attending Provider Instructions: SPECIAL CARE INSTRUCTIONS: 1. Follow through with your scheduled aftercare appointments. If unable to keep an appointment, please call to reschedule. 2. Take your medication only as prescribed. Medication should not be changed or stopped without the approval of your doctor. In the event of worsening symptoms or concerns about side effects, contact your doctor immediately. 3. Utilize new healthy coping skills, anger management skills, and stress management skills learned during your hospitalization. Journal feelings and process them with a support person. Identify stressors or situations that may result in relapse, deterioration or inappropriate behaviors and develop a plan to deal with those issues. 4. If your coping skills are ineffective and you are in crisis, contact your outpatient providers for direction. If unable to reach your providers, please call the [facility] CRISIS LINE AT , go to the [facility] walk-in center at [address], [address], [place], or go to the closest Emergency Room. 5. Avoid alcohol and un-prescribed drugs. 6. You have been provided with the Mental Health Advance Directives Pamphlet for your review. 7. Your condition is stable for discharge to outpatient level of care, but recovery is an ongoing process. Ifthoughts to harm yourself or others return, follow the safety plan developed during your stay. Planning for a safe return home includes securing weapons. Our treatment team recommends weaponsbe removed from the home until your outpatient provider reassesses your progress. In rare cases where the items themselvescannot be removed, guns and ammunitionshould be secured separatelyand keys stored by a reliable personoutside of the home. If you were admitted on an involuntary commitment, the police or other legal authorities may be involved in this process. AFTERCARE APPOINTMENTS: * Please call your insurance company prior to your scheduled appointment to confirm your aftercare providers are covered. Take your insurance information to your appointments. WHO TO CALL AND WHEN: Medical Emergencies: For questions or emergencies related to your hospital stay, please contact the Inpatient Behavioral Health Unit at [phone]. A panel maker is on-call 13/04 for the Behavioral Health Unit for emergencies At any time you feel your situation is an emergency, you may also call 911 immediately. Pending Studies at Discharge: No Stand-Alone Forms: [facility] Refinder by [employer], Smoking Cessation Medications and DC Order Prescriptions: New levothyroxine [Synthroid] 25 mcg Tablet 25 mcg PO DAILYBB 30 Days Qty: 30 RF: 1 Continued desvenlafaxine 100 mg tablet extended release 24 hr 100 mg PO DAILY RF: 0 Alyacen (28) 1-35 mg-mcg tablet 1 tab PO DAILY RF: 0 Discharge Orders: Discharge Order (Routine); Ordered 07/15/21 Ordered By: Mony Hess Admission Data Admit Date/Time: 07/12/21 22:39 Attending Provider: Mony Hess Admit Provider: Mony Hess Primary Care Provider: Jose Alberto Kate Other Interventions: PSY Interdisciplinary Discharge Planning Last Done: 07/15/21 10:19 Coding Level of Care Code 17973 D/C day mgmt > 30 min Diagnoses Depression with suicidal ideation F32.A; R45.851 Generalized anxiety disorder with panic attacks F41.1; F41.0 Hypothyroid E03.9
== END 2021-07-15 13:05 | disposition home or self-care (01) | DRG 881 ==
LOC: ED 19:16 → 3S 22:39